=== PATIENT | female | born 1935 | race Two or more races ===

== ENCOUNTER 2020-12-02 05:36 | Inpatient (IN) | payer MEDICARE, OTHER ==
[~2020-12-02] VITALS: Ht 162.6 cm; Wt 51.5 kg
[2020-12-02] VITALS (50 sets, daily range): BP systolic 78–189; BP diastolic 36–105
[2020-12-02] MEDS ORDERED: SODIUM BICARBONATE 8.4% INJ 50ML SYRINGE ONE (06:06)
[2020-12-02] MEDS ORDERED: SUCCINYLCHOLINE CHLORIDE 20 MG/ML 10ML VIAL IV ONE ×2 (06:17→07:00)
[2020-12-02] MEDS ORDERED: ETOMIDATE (2MG/ML) 20ML VIAL IV ONE ×2 (06:19→07:00)
[2020-12-02 06:23] LABS: Basophils # (auto) 0 10 ^3/uL (0-0.2); Basophils % (auto) 0.1 % (0.0-2.0); Eosinophils # (auto) 0 10 ^3/uL (0-0.8); Hematocrit 40.6 % (36.0-46.0); Hemoglobin 13.3 g/dL (12.2-16.2); Lymphocytes # (auto) 0.6 10 ^3/uL (0.4-5.4); Lymphocytes % (auto) 4.4 % (10.0-50.0); Mean Corpuscular Hemoglobin 32.5 pg (28.0-32.0); Mean Corpuscular Hgb Conc. 32.9 g/dL (32.0-36.0); Monocytes # (auto) 0.6 10 ^3/uL (0-1.3); Monocytes % (auto) 4.1 % (0.0-12.0); Neutrophils # (auto) 12.9 10 ^3/uL (1.6-8.6); Neutrophils % (auto) 91.4 % (37.0-80.0); Platelet Count (auto) 279 10^3/uL (140-450); Red Cell Distribution Width 14.7 % (11.8-14.3); White Blood Cell 14.1 10^3/uL (4.4-10.8)
[2020-12-02] MEDS ORDERED: MIDAZOLAM DRIP 50 mg/50mL 50 ML IV ONE (06:27)
[2020-12-02 06:37] LABS: Albumin 3.3 g/dL (3.4-5.0); Anion Gap 16 (5-15); Blood Alcohol < 3.0 mg/dL (0-5); Blood Urea Nitrogen 27 mg/dL (7-18); Calcium 9.9 mg/dL (8.5-10.1); Carbon Dioxide 24 mmol/L (21-32); Chloride 96 mmol/L (98-107); Magnesium 2.1 mg/dL (1.6-2.6); Sodium 136 mmol/L (136-145)
[2020-12-02 06:42] LABS: Lactic Acid w/Reflex 6.6 mmol/L (0.4-2.0)
[2020-12-02 06:44] LABS: Partial Thromboplastin Time < 20.0 sec (23.0-31.2)
[2020-12-02 06:46] LABS: Alanine Aminotransferase 23 U/L (13-56); Alkaline Phosphatase 78 U/L (45-117); Aspartate Aminotransferase 15 U/L (15-37); BUN/Creatinine Ratio 17.9; Bilirubin, Total 0.7 mg/dL (0.2-1.0); GFR African American 42 mL/min; GFR Non-African American 35 mL/min
[2020-12-02 06:49] LABS: Glucose 711 mg/dL (74-106)
[2020-12-02] MEDS: MIDAZOLAM DRIP 50 mg/50mL 50 ML IV SCH ×3 (06:57→16:44)
[2020-12-02] MEDS ORDERED: SODIUM CHLORIDE 0.9% 2,000 ML IV ONE (07:00)
[2020-12-02 07:30] LABS: Urine Bacteria NONE SEEN /hpf (None Seen); Urine Blood 1+ /uL (Negative); Urine WBC <1 /hpf (0 - 5)
[2020-12-02 07:53] LABS: Alcohol, Urine < 3.0 mg/dL (0-10); Amphetamine Screen, Urine NEGATIVE (NEGATIVE); Barbiturate Scree,Urine NEGATIVE (NEGATIVE); Benzodiazephine Screen, Urine POSITIVE (NEGATIVE); Cannabinoid Screen, Urine POSITIVE (NEGATIVE); Cocaine Screen, Urine NEGATIVE (NEGATIVE); Opiate Scree,Urine NEGATIVE (NEGATIVE); Phencyclidine Screen, Urine NEGATIVE (NEGATIVE)
[2020-12-02] MEDS ORDERED: SODIUM CHLORIDE 0.9% 1,000 ML IV ONE (08:00)
[2020-12-02] MEDS ORDERED: InsuLIN R (HUMAN) 100 UNITS in SODIUM CHL 0.9% 99 ML IV SCH (08:00)
[2020-12-02] MEDS ORDERED: DEXTROSE (50%) 50ML SYRG IV PRN ×2 (08:00→15:00)
[2020-12-02] MEDS ORDERED: InsuLIN REG 1unit/0.01ml Soln (100units/ml) IV ONE (08:00)
[2020-12-02] MEDS ORDERED: ONDANSETRON HCL 4 MG/2 ML VIAL ONE (08:14)
[2020-12-02] MEDS ORDERED: ONDANSETRON HCL 4 MG/2 ML VIAL IV ONE (08:15)
[2020-12-02] MEDS: fentaNYL Drip 2500mCg/250mlNS 250 ML IV SCH (08:20)
[2020-12-02] MEDS: ACCU-CHEK COMFORT CURVE STRIP VI SCH ×6 (09:02→20:00)
[2020-12-02] MEDS ORDERED: ENOXAPARIN SOD 60 MG/0.6 ML SYRINGE SC ONE ×2 (10:00→11:00)
[2020-12-02] MEDS ORDERED: cefTRIAXone 1GM/50ML D5W 50 ML IV ONE (10:45)
[2020-12-02] MEDS ORDERED: SOD CHL 0.45% 1,000 ML IV SCH (11:15)
[2020-12-02] MEDS ORDERED: MORPHINE SULF INJ 2 MG/ML SYRINGE 1ML IV PRN (11:15)
[2020-12-02] MEDS ORDERED: NITROGLYCERIN 0.4 MG SL TAB SL PRN (11:15)
[2020-12-02] MEDS: IPRATROPIUM BROM 0.5 MG/2.5ML INH SOL NEB SCH ×2 (11:41→18:24)
[2020-12-02] MEDS: ALBUTEROL SULF 2.5 MG/0.5ML(0.5%) NEB SOLN NEB SCH ×2 (11:41→18:24)
[2020-12-02] MEDS ORDERED: SODIUM CHLORIDE 0.9% 1,000 ML IV SCH (12:00)
[2020-12-02] MEDS: PANTOPRAZOLE 40 MG/10 ML VIAL INJ IV SCH (12:00)
[2020-12-02] MEDS: AZITHROMYCIN 500MG/ 250ML 250 ML IV SCH (12:00)
[2020-12-02] MEDS: SOD CHL 0.45% 1,000 ML IV SCH ×2 (12:00→20:00)
[2020-12-02] MEDS: INSULIN LANTUS (GLARGINE) 1 /0.01ml (100units/ml) SC SCH (12:01)
[2020-12-02 14:30] LABS: BUN/Creatinine Ratio 21.5; Calcium 9.2 mg/dL (8.5-10.1); Potassium 3.3 mmol/L (3.5-5.1)
[2020-12-02] MEDS: metroNIDAZOLE 500MG/100ML 100 ML IV SCH ×2 (15:15→22:18)
[2020-12-02] MEDS ORDERED: ASPirin-EC 81 mg tab PO ONE (15:15)
[2020-12-02] MEDS: NOREPINEPHRINE 8 MG/250ML KIT 250 ML IV SCH (15:15)
[2020-12-02] MEDS: InsuLIN REG 1unit/0.01ml Soln (100units/ml) SC SCH ×2 (16:23→20:00)
[2020-12-02] MEDS ORDERED: ENOXAPARIN SOD 100 MG/1 ML SYRINGE SC SCH (22:00)
[2020-12-02] MEDS: SODIUM CHLOR 0.9% PF (SALINE LOCK) 10ML VIAL/SYR IV SCH (22:18)
[2020-12-03] VITALS (88 sets, daily range): BP systolic 76–136; BP diastolic 29–83
[2020-12-03] MEDS: IPRATROPIUM BROM 0.5 MG/2.5ML INH SOL NEB SCH ×4 (00:25→18:48)
[2020-12-03] MEDS: ACCU-CHEK COMFORT CURVE STRIP VI SCH ×6 (00:25→20:00)
[2020-12-03] MEDS: ALBUTEROL SULF 2.5 MG/0.5ML(0.5%) NEB SOLN NEB SCH ×4 (00:25→18:48)
[2020-12-03] MEDS: ACETAMINOPHEN 650 mg PER 20.3 mL UD PO PRN ×2 (00:26→20:44)
[2020-12-03] MEDS: SOD CHL 0.45% 1,000 ML IV SCH ×3 (04:00→20:00)
[2020-12-03] MEDS: InsuLIN REG 1unit/0.01ml Soln (100units/ml) SC SCH ×6 (04:00→20:00)
[2020-12-03 04:17] LABS: Basophils # (auto) 0 10 ^3/uL (0-0.2); Basophils % (auto) 0.3 % (0.0-2.0); Eosinophils # (auto) 0 10 ^3/uL (0-0.8); Eosinophils % (auto) 0.1 % (0.0-7.0); Hematocrit 33.3 % (36.0-46.0); Hemoglobin 11.3 g/dL (12.2-16.2); Lymphocytes # (auto) 1.5 10 ^3/uL (0.4-5.4); Lymphocytes % (auto) 10.7 % (10.0-50.0); Mean Corpuscular Hemoglobin 32.6 pg (28.0-32.0); Mean Corpuscular Hgb Conc. 34.1 g/dL (32.0-36.0); Mean Corpuscular Volume 95.8 fL (80.0-100.0); Monocytes # (auto) 0.9 10 ^3/uL (0-1.3); Monocytes % (auto) 6.8 % (0.0-12.0); Neutrophils # (auto) 11.4 10 ^3/uL (1.6-8.6); Neutrophils % (auto) 82.1 % (37.0-80.0); Platelet Count (auto) 243 10^3/uL (140-450); Red Blood Cells 3.48 10^6/uL (4.0-5.20); Red Cell Distribution Width 15.1 % (11.8-14.3); White Blood Cell 13.9 10^3/uL (4.4-10.8)
[2020-12-03 04:35] LABS: Albumin 2.6 g/dL (3.4-5.0); Calcium 8.1 mg/dL (8.5-10.1)
[2020-12-03 04:40] LABS: BUN/Creatinine Ratio 28.4; Bilirubin, Total 0.4 mg/dL (0.2-1.0); Total Protein 5.5 g/dL (6.4-8.2)
[2020-12-03 04:46] LABS: INR 1.01 (0.9-1.15); Partial Thromboplastin Time 26.7 sec (23.0-31.2)
[2020-12-03 04:47] LABS: Potassium 2.3 mmol/L (3.5-5.1)
[2020-12-03] MEDS: INSULIN LANTUS (GLARGINE) 1 /0.01ml (100units/ml) SC SCH (05:33)
[2020-12-03] MEDS: metroNIDAZOLE 500MG/100ML 100 ML IV SCH ×2 (05:34→16:42)
[2020-12-03] MEDS ORDERED: POTASSIUM CHL 20MEQ/100ML 100 ML IV ONE (05:57)
[2020-12-03] MEDS: POTASSIUM CHL 20MEQ/100ML 100 ML IV SCH ×5 (06:07→14:36)
[2020-12-03] MEDS: NOREPINEPHRINE 8 MG/250ML KIT 250 ML IV SCH (08:02)
[2020-12-03] MEDS: fentaNYL Drip 2500mCg/250mlNS 250 ML IV SCH (08:15)
[2020-12-03] MEDS ORDERED: cefTRIAXone 1GM/50ML D5W 50 ML IV SCH (09:00)
[2020-12-03] MEDS: ASPirin 81 mg TAB PO SCH (09:52)
[2020-12-03] MEDS ORDERED: ENOXAPARIN SOD 60 MG/0.6 ML SYRINGE SC SCH (10:00)
[2020-12-03] MEDS ORDERED: ASPirin 81 mg TAB PO SCH (10:00)
[2020-12-03] MEDS: AZITHROMYCIN 500MG/ 250ML 250 ML IV SCH (11:16)
[2020-12-03] MEDS: PANTOPRAZOLE 40 MG/10 ML VIAL INJ IV SCH (11:16)
[2020-12-03] MEDS: SODIUM CHLOR 0.9% PF (SALINE LOCK) 10ML VIAL/SYR IV SCH ×2 (11:20→21:39)
[2020-12-03 20:18] LABS: BUN/Creatinine Ratio 23.6; Calcium 8.1 mg/dL (8.5-10.1); Potassium 3.6 mmol/L (3.5-5.1)
[2020-12-03] MEDS: ENOXAPARIN SOD 60 MG/0.6 ML SYRINGE SC SCH (21:40)
[2020-12-03] MEDS: PIPERACILLIN-TAZOB 3.375GM 100 ML IV SCH (21:40)
[2020-12-04] VITALS (28 sets, daily range): BP systolic 108–140; BP diastolic 50–87
[2020-12-04] MEDS: InsuLIN REG 1unit/0.01ml Soln (100units/ml) SC SCH ×7 (00:13→23:50)
[2020-12-04] MEDS: ACCU-CHEK COMFORT CURVE STRIP VI SCH ×7 (00:13→23:53)
[2020-12-04] MEDS: MAGNESIUM SULFATE 1GM/100ML 100 ML IV SCH ×2 (01:00→02:03)
[2020-12-04] MEDS: SOD CHL 0.45% 1,000 ML IV SCH ×2 (04:00→13:05)
[2020-12-04 04:01] LABS: Basophils # (auto) 0 10 ^3/uL (0-0.2); Basophils % (auto) 0.4 % (0.0-2.0); Eosinophils # (auto) 0 10 ^3/uL (0-0.8); Eosinophils % (auto) 0.1 % (0.0-7.0); Hematocrit 34.7 % (36.0-46.0); Hemoglobin 12.1 g/dL (12.2-16.2); Lymphocytes # (auto) 0.8 10 ^3/uL (0.4-5.4); Lymphocytes % (auto) 8.1 % (10.0-50.0); Mean Corpuscular Hemoglobin 33.1 pg (28.0-32.0); Mean Corpuscular Volume 94.8 fL (80.0-100.0); Monocytes # (auto) 0.6 10 ^3/uL (0-1.3); Monocytes % (auto) 5.5 % (0.0-12.0); Neutrophils # (auto) 8.6 10 ^3/uL (1.6-8.6); Neutrophils % (auto) 85.9 % (37.0-80.0); Nucleated Red Blood Cells % 0.1 %; Platelet Count (auto) 212 10^3/uL (140-450); Red Blood Cells 3.66 10^6/uL (4.0-5.20); Red Cell Distribution Width 15.2 % (11.8-14.3)
[2020-12-04 04:19] LABS: Calcium 8.7 mg/dL (8.5-10.1); Magnesium 2.2 mg/dL (1.6-2.6); Potassium 3.3 mmol/L (3.5-5.1)
[2020-12-04 04:20] LABS: BUN/Creatinine Ratio 19.7
[2020-12-04] MEDS: PIPERACILLIN-TAZOB 3.375GM 100 ML IV SCH ×3 (05:42→21:27)
[2020-12-04] MEDS: MIDAZOLAM DRIP 50 mg/50mL 50 ML IV SCH (06:30)
[2020-12-04] MEDS: INSULIN LANTUS (GLARGINE) 1 /0.01ml (100units/ml) SC SCH (06:42)
[2020-12-04] MEDS: ALBUTEROL SULF 2.5 MG/0.5ML(0.5%) NEB SOLN NEB SCH ×4 (07:05→18:23)
[2020-12-04] MEDS: IPRATROPIUM BROM 0.5 MG/2.5ML INH SOL NEB SCH ×4 (07:05→18:23)
[2020-12-04] MEDS: fentaNYL Drip 2500mCg/250mlNS 250 ML IV SCH (08:15)
[2020-12-04] MEDS ORDERED: POTASSIUM EFFERVESENT TAB 25 MEQ PO ONE (09:00)
[2020-12-04] MEDS: SODIUM CHLOR 0.9% PF (SALINE LOCK) 10ML VIAL/SYR IV SCH ×2 (11:06→21:27)
[2020-12-04] MEDS: PANTOPRAZOLE 40 MG/10 ML VIAL INJ IV SCH (11:06)
[2020-12-04] MEDS: ASPirin 81 mg TAB PO SCH (11:08)
[2020-12-04] MEDS: ENOXAPARIN SOD 60 MG/0.6 ML SYRINGE SC SCH ×2 (11:09→21:29)
[2020-12-04] MEDS: POTASSIUM CHL 20MEQ/100ML 100 ML IV SCH ×2 (11:09→15:47)
[2020-12-04] MEDS ORDERED: SERT100T PO (15:24)
[2020-12-04] MEDS ORDERED: ANAS1TAB52 PO (15:24)
[2020-12-04] MEDS ORDERED: ASPI-306 PO (15:24)
[2020-12-04] MEDS ORDERED: TIZA4CAP PO (15:24)
[2020-12-04] MEDS ORDERED: GLIP5TAB12 PO (15:24)
[2020-12-04] MEDS ORDERED: LOVA40TA72 PO (15:24)
[2020-12-04] MEDS ORDERED: TRAM-300 OR (15:24)
[2020-12-04] MEDS ORDERED: LISI-646 PO (15:24)
[2020-12-04] MEDS ORDERED: CHLO250S PO (15:24)
[2020-12-04] MEDS ORDERED: METF-370 PO (15:24)
[2020-12-04] MEDS ORDERED: LORazepam 0.5 MG TAB PO PRN (15:30)
[2020-12-04] MEDS: FUROSEMIDE 40 MG/4 ML VIAL IV SCH (19:40)
[2020-12-04] MEDS: METOPROLOL TARTRATE 1MG/1ML-5ML VIAL IV PRN (20:43)
[2020-12-04] MEDS: SACUBITRIL-VALSARTAN 24mg/26mg TAB PO SCH (21:27)
[2020-12-04] MEDS: POTASSIUM EFFERVESENT TAB 25 MEQ PO SCH (21:28)
[2020-12-04] MEDS: MAGNESIUM OXIDE 400 MG TAB PO SCH (21:28)
[2020-12-04] MEDS ORDERED: METOPROLOL TARTRATE 25 MG TAB PO SCH (22:00)
[2020-12-05] MEDS: ALBUTEROL SULF 2.5 MG/0.5ML(0.5%) NEB SOLN NEB SCH ×4 (00:21→18:29)
[2020-12-05] MEDS: IPRATROPIUM BROM 0.5 MG/2.5ML INH SOL NEB SCH ×4 (00:21→18:29)
[2020-12-05] MEDS: InsuLIN REG 1unit/0.01ml Soln (100units/ml) SC SCH ×5 (04:00→20:00)
[2020-12-05] MEDS: ACCU-CHEK COMFORT CURVE STRIP VI SCH ×5 (04:10→19:59)
[2020-12-05 04:32] VITALS: BP 129/80
[2020-12-05 05:32] VITALS: BP 129/80
[2020-12-05] MEDS: PIPERACILLIN-TAZOB 3.375GM 100 ML IV SCH ×3 (06:00→22:30)
[2020-12-05] MEDS: FUROSEMIDE 40 MG/4 ML VIAL IV SCH ×2 (06:00→17:15)
[2020-12-05] MEDS: INSULIN LANTUS (GLARGINE) 1 /0.01ml (100units/ml) SC SCH (06:15)
[2020-12-05 08:33] VITALS: BP 122/75
[2020-12-05] MEDS: ASPirin 81 mg TAB PO SCH (10:40)
[2020-12-05] MEDS: SODIUM CHLOR 0.9% PF (SALINE LOCK) 10ML VIAL/SYR IV SCH ×2 (10:40→22:31)
[2020-12-05] MEDS: PANTOPRAZOLE 40 MG/10 ML VIAL INJ IV SCH (10:40)
[2020-12-05] MEDS: MAGNESIUM OXIDE 400 MG TAB PO SCH ×2 (10:44→22:30)
[2020-12-05] MEDS: POTASSIUM EFFERVESENT TAB 25 MEQ PO SCH ×2 (10:44→22:31)
[2020-12-05] MEDS: ENOXAPARIN SOD 60 MG/0.6 ML SYRINGE SC SCH ×2 (10:45→22:30)
[2020-12-05] MEDS: METOPROLOL TARTRATE 1MG/1ML-5ML VIAL IV PRN ×2 (10:45→19:23)
[2020-12-05] MEDS ORDERED: METF-370 PO (10:47)
[2020-12-05] MEDS ORDERED: DYA375C PO (10:47)
[2020-12-05 13:09] VITALS: BP 130/65
[2020-12-05] MEDS: SACUBITRIL-VALSARTAN 24mg/26mg TAB PO SCH ×2 (13:51→22:29)
[2020-12-05] MEDS: LORazepam 2MG/ML-1ML VIAL IV PRN ×2 (13:51→22:30)
[2020-12-05 17:11] VITALS: BP 135/60
[2020-12-05 22:00] VITALS: BP 110/64
[2020-12-06] MEDS: ACCU-CHEK COMFORT CURVE STRIP VI SCH ×6 (00:03→20:25)
[2020-12-06] MEDS: ALBUTEROL SULF 2.5 MG/0.5ML(0.5%) NEB SOLN NEB SCH ×4 (00:29→18:25)
[2020-12-06] MEDS: IPRATROPIUM BROM 0.5 MG/2.5ML INH SOL NEB SCH ×4 (00:29→18:25)
[2020-12-06] MEDS: InsuLIN REG 1unit/0.01ml Soln (100units/ml) SC SCH ×6 (04:00→20:24)
[2020-12-06 05:00] VITALS: BP 112/58
[2020-12-06] MEDS: FUROSEMIDE 40 MG/4 ML VIAL IV SCH ×2 (05:16→17:27)
[2020-12-06] MEDS: PIPERACILLIN-TAZOB 3.375GM 100 ML IV SCH ×3 (05:16→22:35)
[2020-12-06] MEDS: INSULIN LANTUS (GLARGINE) 1 /0.01ml (100units/ml) SC SCH (06:05)
[2020-12-06 09:00] VITALS: BP 115/50
[2020-12-06] MEDS: ENOXAPARIN SOD 60 MG/0.6 ML SYRINGE SC SCH ×2 (09:40→22:36)
[2020-12-06] MEDS: POTASSIUM EFFERVESENT TAB 25 MEQ PO SCH ×2 (09:40→22:35)
[2020-12-06] MEDS: PANTOPRAZOLE 40 MG/10 ML VIAL INJ IV SCH (09:40)
[2020-12-06] MEDS: ASPirin 81 mg TAB PO SCH (09:41)
[2020-12-06] MEDS: MAGNESIUM OXIDE 400 MG TAB PO SCH ×3 (09:41→22:36)
[2020-12-06] MEDS: SACUBITRIL-VALSARTAN 24mg/26mg TAB PO SCH ×3 (09:41→22:35)
[2020-12-06] MEDS: SODIUM CHLOR 0.9% PF (SALINE LOCK) 10ML VIAL/SYR IV SCH ×2 (09:53→22:35)
[2020-12-06] MEDS: METOPROLOL TARTRATE 1MG/1ML-5ML VIAL IV PRN ×2 (10:16→19:10)
[2020-12-06] MEDS: LORazepam 2MG/ML-1ML VIAL IV PRN ×2 (10:24→22:37)
[2020-12-06 13:00] VITALS: BP 98/59
[2020-12-06 17:00] VITALS: BP 97/48
[2020-12-06 21:30] VITALS: BP 131/74
[2020-12-07] MEDS: InsuLIN REG 1unit/0.01ml Soln (100units/ml) SC SCH ×7 (00:17→23:54)
[2020-12-07] MEDS: ACCU-CHEK COMFORT CURVE STRIP VI SCH ×7 (00:18→23:52)
[2020-12-07 05:34] VITALS: BP 95/53
[2020-12-07] MEDS: PIPERACILLIN-TAZOB 3.375GM 100 ML IV SCH ×3 (05:34→21:24)
[2020-12-07] MEDS: FUROSEMIDE 40 MG/4 ML VIAL IV SCH ×2 (05:49→18:39)
[2020-12-07 05:50] VITALS: BP 105/58
[2020-12-07] MEDS: ALBUTEROL SULF 2.5 MG/0.5ML(0.5%) NEB SOLN NEB SCH ×4 (05:55→19:56)
[2020-12-07] MEDS: IPRATROPIUM BROM 0.5 MG/2.5ML INH SOL NEB SCH ×4 (05:55→19:56)
[2020-12-07] MEDS: INSULIN LANTUS (GLARGINE) 1 /0.01ml (100units/ml) SC SCH (07:35)
[2020-12-07 09:00] VITALS: BP 105/54
[2020-12-07] MEDS: POTASSIUM EFFERVESENT TAB 25 MEQ PO SCH ×2 (09:20→21:25)
[2020-12-07] MEDS: SACUBITRIL-VALSARTAN 24mg/26mg TAB PO SCH ×2 (09:21→21:24)
[2020-12-07] MEDS: SODIUM CHLOR 0.9% PF (SALINE LOCK) 10ML VIAL/SYR IV SCH ×2 (09:21→21:24)
[2020-12-07] MEDS: ENOXAPARIN SOD 60 MG/0.6 ML SYRINGE SC SCH (09:21)
[2020-12-07] MEDS: PANTOPRAZOLE 40 MG/10 ML VIAL INJ IV SCH (09:21)
[2020-12-07] MEDS: MAGNESIUM OXIDE 400 MG TAB PO SCH ×2 (09:22→21:25)
[2020-12-07] MEDS: ASPirin 81 mg TAB PO SCH (09:22)
[2020-12-07] MEDS: METOPROLOL TARTRATE 1MG/1ML-5ML VIAL IV PRN (09:23)
[2020-12-07 09:49] LABS: Potassium 3.4 mmol/L (3.5-5.1)
[2020-12-07 09:53] LABS: BUN/Creatinine Ratio 13.1; Magnesium 1.7 mg/dL (1.6-2.6)
[2020-12-07 13:00] VITALS: BP 109/52
[2020-12-07 17:00] VITALS: BP 107/76
[2020-12-07 21:02] VITALS: BP 114/66
[2020-12-08] MEDS: IPRATROPIUM BROM 0.5 MG/2.5ML INH SOL NEB SCH ×5 (00:16→19:45)
[2020-12-08] MEDS: ALBUTEROL SULF 2.5 MG/0.5ML(0.5%) NEB SOLN NEB SCH ×5 (00:16→19:45)
[2020-12-08] MEDS: ACCU-CHEK COMFORT CURVE STRIP VI SCH ×5 (04:13→20:00)
[2020-12-08] MEDS: InsuLIN REG 1unit/0.01ml Soln (100units/ml) SC SCH ×5 (04:15→20:00)
[2020-12-08 05:32] VITALS: BP 113/74
[2020-12-08 05:36] VITALS: BP 113/74
[2020-12-08] MEDS: INSULIN LANTUS (GLARGINE) 1 /0.01ml (100units/ml) SC SCH (05:41)
[2020-12-08] MEDS: PIPERACILLIN-TAZOB 3.375GM 100 ML IV SCH ×3 (05:45→23:05)
[2020-12-08] MEDS: FUROSEMIDE 40 MG/4 ML VIAL IV SCH ×2 (05:46→18:32)
[2020-12-08] MEDS ORDERED: DOBUTamine 1000MCG/ML 250 ML IV SCH (08:15)
[2020-12-08 08:46] VITALS: BP 110/58
[2020-12-08] MEDS ORDERED: MAGNESIUM SULFATE 1GM/100ML 100 ML IV ONE (10:00)
[2020-12-08] MEDS: MAGNESIUM OXIDE 400 MG TAB PO SCH ×2 (10:08→22:00)
[2020-12-08] MEDS: CARVEDILOL 3.125 MG TAB PO SCH ×2 (10:09→22:00)
[2020-12-08] MEDS: ENOXAPARIN SOD 60 MG/0.6 ML SYRINGE SC SCH (10:10)
[2020-12-08] MEDS: ASPirin 81 mg TAB PO SCH (10:11)
[2020-12-08] MEDS: PANTOPRAZOLE 40 MG/10 ML VIAL INJ IV SCH (10:11)
[2020-12-08] MEDS: SODIUM CHLOR 0.9% PF (SALINE LOCK) 10ML VIAL/SYR IV SCH ×2 (10:11→23:05)
[2020-12-08] MEDS: POTASSIUM EFFERVESENT TAB 25 MEQ PO SCH ×2 (10:13→23:10)
[2020-12-08] MEDS: SACUBITRIL-VALSARTAN 24mg/26mg TAB PO SCH ×2 (10:13→23:10)
[2020-12-08 13:00] VITALS: BP 110/62
[2020-12-08 16:34] VITALS: BP 89/53
[2020-12-08 22:00] VITALS: BP 103/54
[2020-12-09] MEDS: IPRATROPIUM BROM 0.5 MG/2.5ML INH SOL NEB SCH ×5 (00:06→23:32)
[2020-12-09] MEDS: ALBUTEROL SULF 2.5 MG/0.5ML(0.5%) NEB SOLN NEB SCH ×5 (00:07→23:32)
[2020-12-09] MEDS: InsuLIN REG 1unit/0.01ml Soln (100units/ml) SC SCH ×6 (01:01→20:00)
[2020-12-09] MEDS: ACCU-CHEK COMFORT CURVE STRIP VI SCH ×6 (04:00→20:00)
[2020-12-09 05:00] VITALS: BP 105/65
[2020-12-09] MEDS: INSULIN LANTUS (GLARGINE) 1 /0.01ml (100units/ml) SC SCH (07:00)
[2020-12-09 07:15] LABS: Basophils # (auto) 0 10 ^3/uL (0-0.2); Basophils % (auto) 0.3 % (0.0-2.0); Eosinophils # (auto) 0.1 10 ^3/uL (0-0.8); Eosinophils % (auto) 1.6 % (0.0-7.0); Hematocrit 37.5 % (36.0-46.0); Hemoglobin 12.7 g/dL (12.2-16.2); Lymphocytes # (auto) 1.4 10 ^3/uL (0.4-5.4); Lymphocytes % (auto) 17.7 % (10.0-50.0); Mean Corpuscular Hemoglobin 32.5 pg (28.0-32.0); Mean Corpuscular Hgb Conc. 33.9 g/dL (32.0-36.0); Mean Corpuscular Volume 95.7 fL (80.0-100.0); Monocytes # (auto) 0.7 10 ^3/uL (0-1.3); Monocytes % (auto) 9.3 % (0.0-12.0); Neutrophils # (auto) 5.6 10 ^3/uL (1.6-8.6); Neutrophils % (auto) 71.1 % (37.0-80.0); Platelet Count (auto) 299 10^3/uL (140-450); Red Blood Cells 3.92 10^6/uL (4.0-5.20); Red Cell Distribution Width 15.1 % (11.8-14.3); White Blood Cell 7.8 10^3/uL (4.4-10.8)
[2020-12-09 07:38] LABS: Potassium 3.1 mmol/L (3.5-5.1)
[2020-12-09 07:42] LABS: INR 0.99 (0.9-1.15); Partial Thromboplastin Time 24.2 sec (23.0-31.2)
[2020-12-09 07:46] LABS: BUN/Creatinine Ratio 19.3; Calcium 8.7 mg/dL (8.5-10.1)
[2020-12-09] MEDS ORDERED: ANGIOMAX 250 MG VIAL IV ONE (08:25)
[2020-12-09] MEDS ORDERED: LIDOCAINE 2%HCL (LOCAL ANESTH.) INJ 20ML MDV ONE (08:26)
[2020-12-09] MEDS ORDERED: fentaNYL CITRATE 100 MCG/2 ML VL ONE (08:26)
[2020-12-09] MEDS ORDERED: MIDAZOLAM HCL 1MG/1ML-2 ML VIAL ONE (08:26)
[2020-12-09] MEDS ORDERED: IODIXANOL 320MG/ML 100ML BTL IV ONE (08:26)
[2020-12-09] MEDS ORDERED: SODIUM CHL 0.9% 0 ML ONE (08:26)
[2020-12-09] MEDS ORDERED: HEPARIN SODIUM (PORCINE) 5000 UNITS/ML 1ML VIAL ONE (09:13)
[2020-12-09] MEDS: MAGNESIUM OXIDE 400 MG TAB PO SCH ×2 (10:00→21:15)
[2020-12-09] MEDS: SODIUM CHLOR 0.9% PF (SALINE LOCK) 10ML VIAL/SYR IV SCH ×2 (10:00→21:16)
[2020-12-09] MEDS: ENOXAPARIN SOD 60 MG/0.6 ML SYRINGE SC SCH (10:00)
[2020-12-09] MEDS: POTASSIUM EFFERVESENT TAB 25 MEQ PO SCH (10:00)
[2020-12-09] MEDS: CARVEDILOL 3.125 MG TAB PO SCH ×2 (10:00→21:15)
[2020-12-09] MEDS: PANTOPRAZOLE 40 MG/10 ML VIAL INJ IV SCH (10:00)
[2020-12-09] MEDS: ASPirin 81 mg TAB PO SCH (10:00)
[2020-12-09] MEDS: SACUBITRIL-VALSARTAN 24mg/26mg TAB PO SCH (10:00)
[2020-12-09 13:00] VITALS: BP 107/72
[2020-12-09] MEDS: PIPERACILLIN-TAZOB 3.375GM 100 ML IV SCH ×3 (13:12→21:14)
[2020-12-09] MEDS: SODIUM CHLORIDE 0.9% 1,000 ML IV SCH ×2 (13:13→21:16)
[2020-12-09] MEDS: METOPROLOL TARTRATE 1MG/1ML-5ML VIAL IV PRN (19:05)
[2020-12-09 22:00] VITALS: BP 90/60
[2020-12-10] MEDS: ACCU-CHEK COMFORT CURVE STRIP VI SCH ×5 (04:28→16:05)
[2020-12-10] MEDS: InsuLIN REG 1unit/0.01ml Soln (100units/ml) SC SCH ×5 (04:38→16:05)
[2020-12-10 05:00] VITALS: BP 106/49
[2020-12-10 06:12] LABS: Basophils # (auto) 0 10 ^3/uL (0-0.2); Basophils % (auto) 0.5 % (0.0-2.0); Eosinophils # (auto) 0.1 10 ^3/uL (0-0.8); Eosinophils % (auto) 1.5 % (0.0-7.0); Hematocrit 33.5 % (36.0-46.0); Hemoglobin 11.7 g/dL (12.2-16.2); Lymphocytes # (auto) 1.1 10 ^3/uL (0.4-5.4); Lymphocytes % (auto) 15.6 % (10.0-50.0); Mean Corpuscular Hemoglobin 33.5 pg (28.0-32.0); Mean Corpuscular Hgb Conc. 34.8 g/dL (32.0-36.0); Mean Corpuscular Volume 96.2 fL (80.0-100.0); Monocytes # (auto) 0.6 10 ^3/uL (0-1.3); Monocytes % (auto) 9.4 % (0.0-12.0); Neutrophils # (auto) 4.9 10 ^3/uL (1.6-8.6); Nucleated Red Blood Cells % 0.1 %; Platelet Count (auto) 272 10^3/uL (140-450); Red Blood Cells 3.48 10^6/uL (4.0-5.20); Red Cell Distribution Width 15.1 % (11.8-14.3); White Blood Cell 6.7 10^3/uL (4.4-10.8)
[2020-12-10 06:34] LABS: Potassium 3.2 mmol/L (3.5-5.1)
[2020-12-10] MEDS: PIPERACILLIN-TAZOB 3.375GM 100 ML IV SCH ×2 (06:35→14:06)
[2020-12-10 06:42] LABS: Albumin 2.3 g/dL (3.4-5.0); BUN/Creatinine Ratio 27.3; Bilirubin, Total 0.3 mg/dL (0.2-1.0); Total Protein 5.3 g/dL (6.4-8.2)
[2020-12-10] MEDS: INSULIN LANTUS (GLARGINE) 1 /0.01ml (100units/ml) SC SCH (06:44)
[2020-12-10] MEDS: SODIUM CHLORIDE 0.9% 1,000 ML IV SCH (08:45)
[2020-12-10 09:01] VITALS: BP 98/59
[2020-12-10] MEDS: SODIUM CHLOR 0.9% PF (SALINE LOCK) 10ML VIAL/SYR IV SCH (09:41)
[2020-12-10] MEDS: ASPirin 81 mg TAB PO SCH (09:41)
[2020-12-10] MEDS: PANTOPRAZOLE 40 MG/10 ML VIAL INJ IV SCH (09:41)
[2020-12-10] MEDS: MAGNESIUM OXIDE 400 MG TAB PO SCH (09:42)
[2020-12-10] MEDS: CARVEDILOL 3.125 MG TAB PO SCH (09:42)
[2020-12-10] MEDS ORDERED: ENOXAPARIN SOD 60 MG/0.6 ML SYRINGE SC SCH (10:00)
[2020-12-10] MEDS ORDERED: POTASSIUM CHL 10 Meq TABLET PO ONE (11:00)
[2020-12-10] MEDS ORDERED: POTASSIUM CHL 20 Meq TABLET PO ONE (11:00)
[2020-12-10] MEDS ORDERED: CAR3125T PO (11:51)
[2020-12-10] MEDS ORDERED: GLIP5TAB12 PO (11:51)
[2020-12-10 12:48] VITALS: BP 125/71
[2020-12-10 16:36] VITALS: BP 113/67
[2020-12-10] MEDS ORDERED: APIXABAN 2.5 MG TAB PO SCH (22:00)
== END 2020-12-10 17:56 | disposition home health service (06) | DRG 871 ==
LOC: EDBD 05:36 → ER 05:36 → OVERFLOW 05:37 → UNDOADMIN 05:37 → OVERFLOW 11:08 → ICU WEST 12:30 → OVERFLOW 12:30 → TELE-CENTR 12-04 23:36
PROVIDERS: ADMIT Nurse Practitioner Acute Care; ATTEND Internal Medicine Nephrology
PROC: 5A1945Z Respiratory Ventilation, 24-96 Consecutive Hours (ICD-10-PCS; principal; 2020-12-02)
PROC: 0BH17EZ Insertion of Endotracheal Airway into Trachea, Via Natural or Artificial Opening (ICD-10-PCS; 2020-12-02)
PROC: 02HV33Z Insertion of Infusion Device into Superior Vena Cava, Percutaneous Approach (ICD-10-PCS; 2020-12-02)
PROC: 4A023N8 Measurement of Cardiac Sampling and Pressure, Bilateral, Percutaneous Approach (ICD-10-PCS; 2020-12-09)
PROC: B2151ZZ Fluoroscopy of Left Heart using Low Osmolar Contrast (ICD-10-PCS; 2020-12-09)
DX: A41.9 Sepsis, unspecified organism (principal); E11.11 Type 2 diabetes mellitus with ketoacidosis with coma; I50.43 Acute on chronic combined systolic (congestive) and diastolic (congestive) heart failure; J96.01 Acute respiratory failure with hypoxia; G93.41 Metabolic encephalopathy; N17.0 Acute kidney failure with tubular necrosis; J69.0 Pneumonitis due to inhalation of food and vomit; R65.21 Severe sepsis with septic shock; I21.A1 Myocardial infarction type 2; E44.1 Mild protein-calorie malnutrition; J91.8 Pleural effusion in other conditions classified elsewhere; I47.1 Supraventricular tachycardia; I48.20 Chronic atrial fibrillation, unspecified; I82.511 Chronic embolism and thrombosis of right femoral vein; Z99.11 Dependence on respirator [ventilator] status; E11.21 Type 2 diabetes mellitus with diabetic nephropathy; E87.6 Hypokalemia; E83.42 Hypomagnesemia; Z20.822 Contact with and (suspected) exposure to COVID-19; Z68.20 Body mass index [BMI] 20.0-20.9, adult; E78.5 Hyperlipidemia, unspecified; R91.1 Solitary pulmonary nodule; I11.0 Hypertensive heart disease with heart failure; I35.0 Nonrheumatic aortic (valve) stenosis; J43.9 Emphysema, unspecified; Z85.118 Personal history of other malignant neoplasm of bronchus and lung; Z79.84 Long term (current) use of oral hypoglycemic drugs; Z85.3 Personal history of malignant neoplasm of breast; Z85.51 Personal history of malignant neoplasm of bladder; Z91.14 Patient's other noncompliance with medication regimen; Z72.0 Tobacco use
CPT/HCPCS: 31500; 36415; 36569; 36600; 70450; 71045; 71250; 80048; 80053; 80307; 80320; 81001; 82550; 82805; 82962; 83036; 83605; 83735; 83880; 84443; 84484; 85025; 85379; 85610; 85730; 86850; 86900; 86901; 87040; 87070; 87081; 87205; 87426; 92610; 93005; 93306; 93970; 94002; 94003; 94640; 96365; 96375; 97110; 97116; 97530; 99152; 99153; 99291; C1751; C9113; G0378; J0330; J0696; J1815; J2250; J2405; J2543; J3480; J3490; Q9967